=== PATIENT | female | born 1945 | race Caucasian/White ===

== ENCOUNTER 2017-04-14 08:29 | Emergency (ER) | payer MEDICARE ==
[2017-04-14 09:23] LABS: #Basophils 0.1 thou/uL (0.0-0.2); #Lymphocytes 1.2 thou/uL (1.20-3.40); #Monocytes 0.6 thou/uL (0.11-0.59); #Neutrophils 9.5 thou/uL (1.40-6.50); %Basophils 0.7 % (0.0-1.0); %Eosinophils 0.1 % (0.0-10.0); %Lymphocytes 10.4 % (21.0-51.0); %Monocytes 5.6 % (0.0-10.0); %Neutrophils 83.2 % (42.0-75.0); Hemoglobin 13.1 g/dL (12.0-16.0); Mean Corpuscular HGB CONC 34.8 g/dL (32.0-36.0); Mean Corpuscular Hemoglobin 30.7 pg (27.0-31.0); Mean Corpuscular Volume 88.2 fl (81.0-99.0); Platelet Count 257 thou/uL (130-400); RBC Distribution Width 11.3 % (11.5-14.5); Red Blood Cell (RBC) Count 4.29 mill/uL (4.20-5.40); White Blood Cell (WBC) Count 11.5 thou/uL (4.8-10.8)
[2017-04-14 09:29] LABS: ALT (SGPT) 18 U/L (8-55); AST (SGOT) 21 U/L (5-34); Albumin 4.4 g/dL (3.4-4.8); Alkaline Phosphatase 39 U/L (40-150); Anion Gap 15 mmol/L (10-20); BUN (Urea Nitrogen) 17 mg/dL (9.8-20.1); Bilirubin, Total 0.3 mg/dL (0.2-1.2); Calc. Creatinine Clearance 0 mL/min (70-130); Calcium 9.6 mg/dL (7.8-10.44); Carbon Dioxide 21 mmol/L (23-31); Chloride 104 mmol/L (98-107); Estimated GFR-MDRD 81; Globulin 2.6 g/dL (2.4-3.5); Glucose 161 mg/dL (83-110); Lipase 25 U/L (8-78); Sodium 136 mmol/L (136-145)
--- NOTE | 2017-04-14 09:39 | CT ---
NONCONTRAST CT ABDOMEN AND PELVIS: Date: 04/14/17 HISTORY: Right flank pain with onset at 0200 hours. Symptoms present to prior urinary stones. FINDINGS: There is minimal linear scarring versus atelectasis at each lung base. There is mild right hydronephrosis and hydroureter with an approximately 2.0 mm calculus present at t he right UVJ. No renal calculus is present and there is no left ureteral calculus visualized. The liver, spleen, pancreas, bilateral adrenal glands, and urinary bladder demonstrate a normal CT ap pearance. Uterus is not visualized, likely related to prior hysterectomy. There is colonic diverticulosis present. The appendix is normal in caliber. Degenerative changes are seen in the spine. There is evidence of a small hiatal hernia. IMPRESSION: 1. Partially obstructing 2.0 mm right UVJ calculus. 2. No CT evidence of appendicitis. 3. Colonic diverticulosis. 4. Small hiatal hernia. 5. Hysterectomy. POS: [facility]
[2017-04-14 10:02] LABS: Bilirubin Negative (Negative); Blood, Urine Trace (Negative); Clarity Clear (Clear); Glucose, Urine (Dipstick) Negative (Negative); Leukocyte Negative (Negative); Nitrite Negative (Negative); Protein, Urine (Dipstick) Negative (Neg-Trace); Urobilinogen 0.2 mg/dL (0.2-1.0); pH, Urine 6.5 (5.0-9.0)
[2017-04-14 10:08] LABS: Bacteria/HPF Rare-Few HPF (None Seen); RBC/HPF 0-3 HPF (0-3); Squamous Epithelial 0-3 HPF (0-3); WBC/HPF None Seen HPF (0-3)
== END 2017-04-14 10:20 | disposition home or self-care (01) ==
LOC: SCSER 08:29
DX: N13.2 Hydronephrosis with renal and ureteral calculous obstruction (principal); E11.9 Type 2 diabetes mellitus without complications; I10 Essential (primary) hypertension; F32.9 Major depressive disorder, single episode, unspecified
CPT/HCPCS: 74176; 80053; 81003; 81015; 83690; 85025; 96374; J2270

== ENCOUNTER 2018-01-07 14:13 | Outpatient (CLI) | payer MEDICARE | END 2018-01-07 14:14 | disposition home or self-care (01) | LOC: BICMAMMO 14:13 | PROVIDERS: ATTEND Family Medicine | DX: Z12.31 Encounter for screening mammogram for malignant neoplasm of breast (principal); N63.10 Unspecified lump in the right breast, unspecified quadrant; Z80.3 Family history of malignant neoplasm of breast | CPT/HCPCS: 77063; 77067 ==

== ENCOUNTER 2018-01-09 09:43 | Outpatient (CLI) | payer MEDICARE ==
--- NOTE | 2018-01-09 11:08 | ULT ---
RIGHT BREAST SONOGRAM: History: New right breast mass. FINDINGS: Sonographic evaluation of the 2 o'clock position of the right breast in the region of mammographic co ncern shows scattered fibroglandular densities. An oval well circumscribed hypoechoic mass at the sup erficial aspect of the breast in the region of mammographic abnormality measures 0.4 cm width x 0.3 c m depth. Subtle posterior shadowing. No other masses are visible. IMPRESSION: New hypoechoic mass at the superficial 2 o'clock position right breast. BIRADS category 4 - suspiciou s findings. Tissue sampling suggested. Patient has been scheduled for sonographic guided needle biops y later today. Findings were called to Dr. Neumann. Code CR POS: [facility]
--- NOTE | 2018-01-10 07:52 | ULT ---
SONOGRAPHIC GUIDED RIGHT BREAST MASS BIOPSY: History: New right breast mass. FINDINGS: After explaining the procedure and answering all questions, the right breast was prepped and draped i n the usual sterile fashion. Sterile technique, buffered local anesthesia, sonographic guidance, and a medial approach were used to carefully advance a 14 gauge core biopsy needle immediately deep to th e small hypoechoic mass at the 2 o'clock position right breast. A total of three specimens were obtai jacqueline and eventually submitted to pathology for evaluation. Localization clip was placed in the biopsy bed under sonographic control. The patient tolerated the procedure well and was dismissed in good con dition. IMPRESSION: Technically successful sonographic guided biopsy right breast mass. Pathology is pending . POS: [facility]
== END 2018-01-09 09:44 | disposition home or self-care (01) ==
LOC: BICULT 09:43
PROVIDERS: ATTEND Family Medicine
DX: N63.12 Unspecified lump in the right breast, upper inner quadrant (principal); N64.1 Fat necrosis of breast; N64.59 Other signs and symptoms in breast; Z98.890 Other specified postprocedural states
CPT/HCPCS: 19084; 88305

== ENCOUNTER 2018-07-10 13:27 | Outpatient (CLI) | payer MEDICARE ==
--- NOTE | 2018-07-10 13:58 | MMO ---
Right Breast MAMMO Unilat Diag DDI RT+AILYN. CLINICAL HISTORY: Patient is 73 years old and is seen for diagnostic exam and pain in the right breast. The patient has the following family history of breast cancer: niece, 30s, paternal; cousin female, 30s, paternal; father and paternal grandfather. The patient has no personal history of cancer. The patient has a history of right Excisional Biopsy in January,. VIEWS: The views performed were: right craniocaudal with tomosynthesis; right mediolateral oblique with tomosynthesis; and right mediolateral. FILMS COMPARED: The present examination has been compared to [place] [facility] [place], and at [facility] on 10/27/2014, 11/18/2015, 01/01/2017 and 01/07/2018. MAMMOGRAM FINDINGS: There are scattered fibroglandular densities. Finding 1: There is a stable biopsy clip seen in the right breast. Finding 2: There are no mammographic abnormalities to explain the patient's breast pain. The patient is referred back to her clinician. Negative imaging findings should not preclude biopsy if clinical findings are suspicious. There are no suspicious masses, suspicious calcifications, or new areas of architectural distortion. IMPRESSION: FINDING 2: THERE ARE NO MAMMOGRAPHIC ABNORMALITIES TO EXPLAIN THE PATIENT'S BREAST PAIN. THE PATIENT IS REFERRED BACK TO HER CLINICIAN. A ROUTINE FOLLOW-UP MAMMOGRAM IN 1 YEAR IS RECOMMENDED. THE RESULTS OF THIS EXAM WERE SENT TO THE PATIENT. ACR BI-RADS Category 2 - Benign finding MAMMOGRAPHY NOTE: 1. A negative mammogram report should not delay a biopsy if a dominant of clinically suspicious mass is present. 2. Approximately 10% to 15% of breast cancers are not detected by mammography. 3. Adenosis and dense breasts may obscure an underlying neoplasm.
== END 2018-07-10 13:28 | disposition home or self-care (01) ==
LOC: BICMAMMO 13:27
PROVIDERS: ATTEND Family Medicine
DX: N64.4 Mastodynia (principal); Z80.3 Family history of malignant neoplasm of breast
CPT/HCPCS: 77065; G0279

== ENCOUNTER 2020-01-11 13:25 | Outpatient (CLI) | payer MEDICARE ==
--- NOTE | 2020-01-11 14:29 | MMO ---
Bilateral MAMMO Bilat Screen DDI+AILYN. CLINICAL HISTORY: Patient is 74 years old and is seen for screening. The patient has the following family history of breast cancer: niece, 30s, paternal; cousin female, 30s, paternal; father and paternal grandfather. The patient has no personal history of cancer. The patient has a history of right Excisional Biopsy in January,. VIEWS: The views performed were: bilateral craniocaudal with tomosynthesis and bilateral mediolateral oblique with tomosynthesis. FILMS COMPARED: The present examination has been compared to prior imaging studies performed at [facility] on 11/18/2015, 01/01/2017, 01/07/2018 and 07/10/2018. This study has been interpreted with the assistance of computer-aided detection. MAMMOGRAM FINDINGS: There are scattered fibroglandular densities. There are stable benign appearing calcifications seen in both breasts. There are no suspicious masses, suspicious calcifications, or new areas of architectural distortion. IMPRESSION: THERE IS NO MAMMOGRAPHIC EVIDENCE OF MALIGNANCY. A ROUTINE FOLLOW-UP MAMMOGRAM IN 1 YEAR IS RECOMMENDED. THE RESULTS OF THIS EXAM WERE SENT TO THE PATIENT. ACR BI-RADS Category 2 - Benign finding MAMMOGRAPHY NOTE: 1. A negative mammogram report should not delay a biopsy if a dominant of clinically suspicious mass is present. 2. Approximately 10% to 15% of breast cancers are not detected by mammography. 3. Adenosis and dense breasts may obscure an underlying neoplasm. Reported by: MATY YANEZ MD Electonically Signed: [id number]
== END 2020-01-11 13:26 | disposition home or self-care (01) ==
LOC: BICMAMMO 13:25
PROVIDERS: ATTEND Family Medicine
DX: Z12.31 Encounter for screening mammogram for malignant neoplasm of breast (principal); Z80.3 Family history of malignant neoplasm of breast
CPT/HCPCS: 77063; 77067

== ENCOUNTER 2021-07-26 08:01 | Outpatient (CLI) | payer MEDICARE | END 2021-07-26 08:02 | disposition home or self-care (01) | LOC: BICMAMMO 08:01 | PROVIDERS: ATTEND Family Medicine | DX: Z12.31 Encounter for screening mammogram for malignant neoplasm of breast (principal); Z13.820 Encounter for screening for osteoporosis; Z80.3 Family history of malignant neoplasm of breast; M85.88 Other specified disorders of bone density and structure, other site | CPT/HCPCS: 77063; 77067; 77080 ==

== ENCOUNTER 2022-09-17 14:08 | Outpatient (CLI) | payer MEDICARE | END 2022-09-17 14:09 | disposition home or self-care (01) | LOC: BICMAMMO 14:08 | PROVIDERS: ATTEND Family Medicine | DX: Z12.31 Encounter for screening mammogram for malignant neoplasm of breast (principal); Z80.3 Family history of malignant neoplasm of breast | CPT/HCPCS: 77063; 77067 ==